=== PATIENT | male | born 1965 | race Caucasian/White ===

== ENCOUNTER 2018-11-05 11:35 | Emergency (ER) | payer BC ==
[2018-11-05] MEDS ORDERED: ASPIRIN 325 MG TABLET PO ONE (11:52)
--- NOTE | 2018-11-05 11:55 | Emergency Department Record ---
History of Present Illness - General Chief Complaint: Dizziness Stated Complaint: CHEST TIGHTNESS/DIZZY Time Seen by Provider: 11/05/18 11:45 Source: Patient Mode of Arrival: Ambulatory Limitations: No limitations - History of Present Illness Initial Comments: The patient is here due to an episode of chest pressure with mild SOB and lightheadedness yesterday and today. Both episodes occurred at work and resolved with rest and lasted about 10-15 minutes in length. Presently the patient is pain free and resting comfortably. The patient is concerned about his heart and he has cardiac risk factors of HTN, tobacco use and a strong family hx of CAD with his brother and father having issues in the late 40's and 50's. The patient did have a normal EST here at [facility] 11 months ago. MD Complaint: Dizziness Onset/Timin -: Hour(s) Timing: Unsure History of Same: No History of Trauma: No Improves With: Nothing Worsens With: Nothing Associated Symptoms: Denies other symptoms - [place] Coma Scale Eye Response: (4) Open spontaneously Motor Response: (6) Obeys commands Verbal Response: (5) Oriented [place] Total: 15 - Related Data Home Medications Medication Instructions Recorded Confirmed Last Taken Acetaminop W/ Codeine 300/30Mg 1 tab PO Q6H 11/05/18 11/05/18 Unknown [Tylenol #3] Lisinopril 2.5 mg PO DAILY 11/05/18 11/05/18 Unknown Omeprazole 10 mg PO DAILY 11/05/18 11/05/18 Unknown Allergies Allergy/AdvReac Type Severity Reaction Status Date / Time naproxen [From Aleve] Allergy SWELLING Verified 11/05/18 11:43 (GENERAL) Travel Screening - Travel/Exposure Within Last 30 Days Have you traveled within the last 30 days?: No Review of Systems Constitutional: Denies: Chills, Fever Eyes: Denies: Eye discharge ENT: Denies: Congestion Respiratory: Denies: Cough Cardiovascular: Reports: Chest pain, Dyspnea on exertion. Denies: Arrhythmia Endocrine: Reports: Fatigue Gastrointestinal: Denies: Diarrhea, Vomiting Genitourinary: Denies: Dysuria Musculoskeletal: Denies: Arthralgia Skin: Denies: Bruising Past Medical History - SOCIAL HISTORY Smoking Status: Current every day smoker Alcohol Use: Heavy Drug Use: Rare Drug Use Detail:: Marijuana - RESPIRATORY Hx Respiratory Disorders: No - CARDIOVASCULAR Hx Cardio Disorders: No - NEURO Hx Neuro Disorders: No - GI Hx GI Disorders: No - Hx Genitourinary Disorders: No - ENDOCRINE Hx Endocrine Disorders: No - MUSCULOSKELETAL Hx Musculoskeletal Disorders: No - PSYCH Hx Psych Problems: No - HEMATOLOGY/ONCOLOGY Hx Hematology/Oncology Disorders: No Family Medical History Any Significant Family History?: No Physical Exam - General General Appearance: Alert, Oriented x3, Cooperative, No acute distress - Head Head exam: Atraumatic, Normocephalic, Normal inspection - Eye Eye exam: Normal appearance, PERRL, EOMI - ENT Throat exam: Normal inspection. negative: Tonsillar erythema, Tonsillar exudate - Neck Neck exam: Normal inspection, Full ROM. negative: Lymphadenopathy, Tenderness - Respiratory Respiratory exam: Normal lung sounds bilaterally. negative: Respiratory distress - Cardiovascular Cardiovascular Exam: Regular rate, Normal rhythm, Normal heart sounds. negative : Diastolic murmur, Systolic murmur - GI/Abdominal GI/Abdominal exam: Soft, Normal bowel sounds. negative: Tenderness - Extremities Extremities exam: Normal inspection, Full ROM, Normal capillary refill, Other ( Radial pulses 2+ and equal bilaterally.). negative: Tenderness - Neurological Neurological exam: Alert, Normal gait. negative: Abnormal gait, Motor sensory deficit - Psychiatric Psychiatric exam: negative: Anxious - Skin Skin exam: negative: Rash Course Vital Signs 11/05/18 11/05/18 11:37 11:47 Temperature 98.5 F Pulse Rate 61 Respiratory 18 Rate Blood Pressure 166/84 Pulse Ox 98 - Reevaluation(s) Reevaluation #1: The patient is doing very well at this time. He denies any pain or discomfort. I did explain the normal lab tests and xray but do recommend further evaluation by Cardiology. 11/05/18 12:34 Reevaluation #2: The patient is doing very well at this time. He denies any pain or discomfort. I did discuss the case with Dr. Greenwood and he would like the patient transferred to [facility] for a hearth catheterization. The patient also agrees with the plan. 11/05/18 13:14 Medical Decision Making - Data Complexity MDM Data: Labs Ordered and/or Reviewed, X-Ray Ordered and/or Reviewed, EKG Ordered and/or Reviewed - Lab Data Result diagrams: 11/05/18 11:45 11/05/18 11:45 - EKG Data -: EKG Interpreted by Me EKG: No Acute Changes - Radiology Data Radiology results: Report reviewed (CXR: Neg.) Disposition Disposition: Transfer Clinical Impression: Chest pain Qualifiers: Chest pain type: unspecified Qualified Code(s): R07.9 - Chest pain, unspecified Disposition: Acute Care Hospital Transfer Transfer To: [facility] Reason For Transfer: Cardiology Accepting Physician: Timo Time Discussed w/Accepting Physician: 13:16 Condition: (2) Stable Forms: Patient Portal Access Time of Disposition: 13:16 Quality - Quality Measures Quality Measures: N/A - Blood Pressure Screening View Details: Yes Does Patient Have Any of the Following: No Blood Pressure Classification: Pre-Hypertensive BP Reading Systolic Measurement: 166 Diastolic Measurement: 84 Screening for High Blood Pressure: < Pre-Hypertensive BP, F/U Documented > [ [id number]] Pre-Hypertensive Follow-up Interventions: Referral to alternative/primary care provider.
[2018-11-05 12:01] LABS: EOS % 3.3 % (0-6); GRAN % 54.9 % (47-80); HEMOGLOBIN 15.6 gm/dl (14.0-18.0); LYMPH % 27.7 % (16-45); MEAN CELL VOLUME 95.1 fl (81-97); MEAN CORPUSCULAR HGB CONC 34.7 g/dl (32-36); MEAN PLATELET VOLUME 9.4 fl (7.4-10.4); MONO % 13.1 % (0-9); PLATELET COUNT 272 K/uL (130-400); RED BLOOD COUNT 4.73 M/uL (4.40-5.70); WHITE BLOOD COUNT W/O DIFF 6.1 K/uL (4.2-12.2)
[2018-11-05 12:12] LABS: BLOOD UREA NITROGEN 10 mg/dL (6-20); CREATININE 0.7 mg/dL (0.7-1.2); EST GLOMERULAR FILTRATION RATE > 60 mL/min
[2018-11-05 12:15] LABS: GLUCOSE,RANDOM 104 mg/dL (74-109); PARTIAL THROMBOPLASTIN TIME 28.5 SECONDS (24.5-39.1); PROTHROMBIN TIME (PATIENT) 10.1 SECONDS (9.5-12.1)
[2018-11-05 12:17] LABS: ALB/GLOB RATIO 1.5 (1.1-1.8); ALBUMIN 4.2 g/dL (4.0-5.0); ALT/SGPT 11 U/L (<41); AST/SGOT 17 U/L (10.0-50.0)
[2018-11-05 12:18] LABS: ALKALINE PHOSPHATASE 66 U/L (40-129); CREATINE PHOSPHOKINASE 146 U/L (39-308)
[2018-11-05 12:19] LABS: CKMB 3.2 ng/mL (<6.73)
[2018-11-05] MEDS ORDERED: IBUPROFEN 400 MG TABLET PO ONE (13:16)
[2018-11-05] MEDS ORDERED: ACETAMINOPHEN 325 MG TAB PO ONE (13:18)
== END 2018-11-05 14:04 | disposition short-term general hospital (02) ==
LOC: ER 11:35
DX: R07.89 Other chest pain (principal); R06.02 Shortness of breath; R42 Dizziness and giddiness; I10 Essential (primary) hypertension; F17.210 Nicotine dependence, cigarettes, uncomplicated
CPT/HCPCS: 71046; 80053; 82550; 82553; 84484; 85025; 85610; 85730; 93005; 93010; 99285

== ENCOUNTER 2018-11-29 07:27 | Day surgery (SDC) | payer BC ==
[2018-11-29] MEDS ORDERED: PROPOFOL 10 MG/ML VIAL IV ONE (07:28)
[2018-11-29] MEDS ORDERED: LIDOCAINE 2% MDV (20MG/ML) 20ML VIAL IV ONE (07:28)
--- NOTE | 2018-12-02 08:50 | Operative Note ---
DATE OF SURGERY: 11/29/2018 SURGEON: Rock Medina MD OPERATION: ESOPHAGOGASTRODUODENOSCOPY. INDICATIONS: This is a 53-year-old male with history of Dowell's esophagus who presented for surveillance endoscopy. POSTOPERATIVE DIAGNOSES: 1. Short-segment Dowell's mucosa in the distal esophagus, status post multiple biopsies. 2. Normal stomach and duodenum. ANESTHESIA: Sedation is per Anesthesia. Pulse oximetry was monitored throughout the procedure to maintain O2 saturation of 90% or greater. Supplemental oxygen was administered via nasal cannula. Cardiac and vital signs were monitored throughout the duration of the procedure, and they were stable. The procedure of esophagogastroduodenoscopy and risks and benefits of the procedure, including the risk of bleeding and perforation, among others, were explained to the patient who voiced understanding and agreed to have the procedure done. Physical examination was performed, and the patient was found stable for sedation. PROCEDURE: The patient was placed in the left lateral position. Sedation was initiated. A plastic bite block was inserted into the oral cavity. The Olympus [id number] gastroscope was introduced into the oral cavity and advanced to the proximal esophagus without difficulty. The esophageal mucosa was carefully examined upon introduction of the gastroscope. The proximal and mid esophageal mucosa appeared normal. In the distal esophagus was a short-segment Dowell's mucosa with no nodules noted. The gastroscope was then advanced into the stomach without any difficulty. Careful examination of the stomach and descending duodenal mucosa appeared normal. The gastroscope was then withdrawn into the stomach and retroflexion was performed. There were no other lesions noted. The gastroscope was then straightened and withdrawn while carefully examining the gastric and esophageal mucosa. No other lesions noted. Multiple distal esophageal biopsies were obtained. The patient remained with stable vital signs and was transferred to the recovery room. RECOMMENDATIONS: 1. The patient should continue on his proton pump inhibitors. 2. He is to have repeat esophagogastroduodenoscopy in about 3 years. Thank you for allowing me to participate in the care of your patient. CC: Kayli ROGERS
== END 2018-11-29 09:15 | disposition home or self-care (01) ==
LOC: HOP 07:27
PROVIDERS: ATTEND Internal Medicine Gastroenterology
DX: K22.70 Barrett's esophagus without dysplasia (principal); K21.0 Gastro-esophageal reflux disease with esophagitis; I10 Essential (primary) hypertension

== ENCOUNTER 2019-08-14 07:31 | Day surgery (SDC) | payer BC ==
[~2019-08-14 07:31] MED LIST: ACETAMINOPHEN 1,000 MG/100 ML BTL IVPB ONE
[2019-08-14] MEDS ORDERED: SEVOFLURANE 250 ML INH ONE (07:32)
[2019-08-14] MEDS ORDERED: KETOROLAC 30 MG/ML VIAL IVP ONE (07:32)
[2019-08-14] MEDS ORDERED: PROPOFOL 10 MG/ML VIAL IV ONE (07:32)
[2019-08-14] MEDS ORDERED: MIDAZOLAM HCL 2MG/2ML VIAL IV ONE (07:32)
[2019-08-14] MEDS ORDERED: LIDOCAINE 2% MDV (20MG/ML) 20ML VIAL IV ONE (07:32)
[2019-08-14] MEDS ORDERED: FENTANYL PF 100MCG/2ML VIAL IV ONE (07:32)
[2019-08-14] MEDS ORDERED: ONDANSETRON HCL IV 4 MG/2 ML VIAL IVP ONE (07:32)
[2019-08-14] MEDS ORDERED: RINGERS SOLUTION,LACTATED 1,000 ML IV ONE (08:00)
[2019-08-14] MEDS ORDERED: ACETAMINOPHEN WITH CODEINE 5 ML SOLUTION PO ONE (11:04)
[2019-08-14] MEDS ORDERED: ACETAMINOPHEN W/ CODEINE 300MG/30MG TABLET PO ONE (11:08)
--- NOTE | 2019-08-14 14:19 | Operative Note ---
DATE OF SURGERY: 08/14/2019 SURGEON: Steve Khalil D.O. REFERRING PHYSICIAN: Philippe Ruiz D.O. PREOPERATIVE DIAGNOSIS: CARPAL TUNNEL SYNDROME OF THE RIGHT WRIST. POSTOPERATIVE DIAGNOSIS: CARPAL TUNNEL SYNDROME OF THE RIGHT WRIST. OPERATION: DECOMPRESSION OF THE RIGHT MEDIAN NERVE AT THE WRIST USING 3.5 LOOP MAGNIFICATION. DESCRIPTION: This 54-year-old male was taken to the Operating Room and placed in the supine position on the operating room table. A general anesthetic was administered and the right upper extremity was elevated and it was prepped with Hibiclens and draped in the usual sterile fashion. The tourniquet was inflated to 250 mmHg. A palmar incision was utilized following the hypothenar crease from the level of the base of the web space of the thumb to the flexor crease of the wrist. Dissection was carried down through the skin and subcutaneous tissue. Hemostasis was obtained with electrocautery. The palmar fascia was divided in line with the skin incision. The flexor retinaculum was identified, it was punctured and then split to its proximal margin with the contents of the carpal tunnel under direct vision. The transverse carpal ligament was then transected along its ulnar border to expose the entire median nerve under the transverse carpal ligament. The radial flap was raised to expose the nerve and thickening of the tenosynovium was identified with mild hourglass deformity of the nerve being identified with mild hyperemia also being noted. The current motor branch appeared to be intact. The wound was irrigated and the tourniquet was released. Minimal bleeding was encountered. The wound was then closed with interrupted 6-0 nylon suture. Sterile dressings were applied with plaster splint immobilization with the wrist in slight dorsiflexion and the thumb in an adducted position. The patient was then taken to the Recovery Room in satisfactory condition. GROSS PATHOLOGY: This patient demonstrated mild hourglass deformity and hyperemia of the median nerve of the right wrist. JOB NUMBER: [id number] [facility]
== END 2019-08-14 11:22 | disposition home or self-care (01) ==
LOC: SUR 07:31
PROVIDERS: ATTEND Orthopaedic Surgery
DX: G56.01 Carpal tunnel syndrome, right upper limb (principal); I10 Essential (primary) hypertension
CPT/HCPCS: 64721; 64727; 01810; J1885; J2405; J3010; J7120